=== PATIENT | female | born 1980 | race Caucasian/White ===

== ENCOUNTER 2016-06-12 08:44 | Day surgery (SDC) | payer OTHER ==
[~2016-06-12] VITALS: Ht 170.2 cm; Wt 96.6 kg
[2016-06-12] MEDS ORDERED: KEFLEX500 MG PO (09:16)
[2016-06-12] MEDS ORDERED: WELLBUTRIN XL150 MG PO (09:17)
[2016-06-12] MEDS ORDERED: PHENERGAN 25 MG25 M1 PO (09:17)
[2016-06-12] MEDS ORDERED: PROZAC10 MG PO (09:17)
[2016-06-12] MEDS ORDERED: SEROQUEL300 MG PO (09:18)
[2016-06-12 09:24] LABS: HEMOGLOBIN 12.4 gm/dl (12.3-15.3); RED BLOOD COUNT 4.11 M/UL (4.00-5.10); WHITE BLOOD COUNT 9.3 K/UL (4.5-11.0)
== END 2016-06-12 16:15 | disposition home or self-care (01) ==
LOC: OR 08:44 → OB 12:26 → OR 16:15
PROVIDERS: Obstetrics & Gynecology
PROC: 0UBL0ZZ Excision of Vestibular Gland, Open Approach (ICD-10-PCS; principal; 2016-06-12 08:45)
DX: O26.891 Other specified pregnancy related conditions, first trimester (principal); N75.8 Other diseases of Bartholin's gland; O99.331 Smoking (tobacco) complicating pregnancy, first trimester; F17.210 Nicotine dependence, cigarettes, uncomplicated; Z3A.12 12 weeks gestation of pregnancy; Z79.899 Other long term (current) drug therapy; Z88.8 Allergy status to other drugs, medicaments and biological substances
CPT/HCPCS: 36415; 81001; 84703; 85025; J1885; J2250; J2795; J7120

== ENCOUNTER → 2016-06-20 | Outpatient (CLI) | payer OTHER ==
[~2016-06-20] MED LIST: KEFLEX500 MG PO; PHENERGAN 25 MG25 M1 PO; PROZAC10 MG PO; SEROQUEL300 MG PO; WELLBUTRIN XL150 MG PO
== END ==
LOC: OPSV 09:14
DX: Z48.00 Encounter for change or removal of nonsurgical wound dressing (principal)
CPT/HCPCS: G0463

== ENCOUNTER 2016-07-31 16:35 | Outpatient (CLI) | payer OTHER ==
[2016-07-31 17:32] LABS: HEMOGLOBIN 12.4 gm/dl (12.3-15.3); RED BLOOD COUNT 4.04 M/UL (4.00-5.10)
[2016-07-31 17:53] LABS: BUN/CREATININE RATIO 10 (0-10)
== END 2016-07-31 20:46 | disposition home or self-care (01) ==
LOC: ER1 16:35 → GENOP 17:10 → ZEROF 17:10 → ER1 19:35 → GENOP 20:46 → ZEROF 20:46
PROVIDERS: Emergency Medicine
DX: O02.1 Missed abortion (principal); Z3A.16 16 weeks gestation of pregnancy
CPT/HCPCS: 36415; 76805; 80053; 80307; 81001; 84702; 85025; 86900; 86901; 99284; G0463

== ENCOUNTER 2016-08-01 11:10 | Observation (INO) | payer OTHER ==
[~2016-08-01] VITALS: Ht 170.2 cm; Wt 98.9 kg
== END 2016-08-02 06:29 | disposition home or self-care (01) ==
LOC: GENOP 11:10 → OB 11:46
PROVIDERS: ADMIT Obstetrics & Gynecology
DX: O02.1 Missed abortion (principal); F17.210 Nicotine dependence, cigarettes, uncomplicated; Z79.899 Other long term (current) drug therapy; Z90.49 Acquired absence of other specified parts of digestive tract; Z88.8 Allergy status to other drugs, medicaments and biological substances
CPT/HCPCS: G0378; J1200; J2300; J2550; J2590; J7050; J7120

== ENCOUNTER 2020-07-27 18:27 | Emergency (ER) | payer OTHER ==
[~2020-07-27 18:27] MED LIST changes: +COLACE 100MG C100 MG PO; +FLEXERIL 10 MG10 MG PO; +IBUPROFEN600 MG PO; +LAMICTAL25 MG PO; +LEXAPRO20 MG PO; +LORCET 5-325 M1 EACH PO; +NORCO 10-325 T1 EACH PO; -PROZAC10 MG PO; -SEROQUEL300 MG PO; +VISTARIL25 MG PO; -WELLBUTRIN XL150 MG PO
== END 2020-07-27 21:21 | disposition home or self-care (01) ==
LOC: ER1 18:27
DX: R51.9 Headache, unspecified (principal); F17.210 Nicotine dependence, cigarettes, uncomplicated; Z90.49 Acquired absence of other specified parts of digestive tract; Z79.899 Other long term (current) drug therapy
CPT/HCPCS: 99283

== ENCOUNTER → 2020-08-19 | Outpatient (CLI) | payer OTHER ==
[2020-08-19 12:10] LABS: RBC (AUTOMATED) 5200 10^6 (0); WBC (AUTOMATED 14 10^3 (0-5)
[2020-08-19 12:12] LABS: RBC (AUTOMATED) 400 10^6 (0); WBC (AUTOMATED 3 10^3 (0-5)
[2020-08-19 12:32] LABS: GLUCOSE,CSF 55 mg/dL (50-80); TOTAL PROTEIN,CSF 40 mg/dL (20-45)
[2020-08-21 14:11] LABS: CSF IGG INDEX 0.6 (0.0-0.7); CSF/SERUM ALB. INDEX 4 (0-8); IMMUNOGLOBULIN G, QN, SERUM 718 mg/dL (586-1602)
[2020-08-23 17:12] LABS: MYELIN BASIC PROTEIN, CSF 3.7 ng/mL (0.0-3.7)
== END ==
LOC: RAD 07:44
PROVIDERS: Nurse Practitioner Family
DX: G35 Multiple sclerosis (principal)
CPT/HCPCS: 36415; 82040; 82784; 82945; 83873; 83916; 84157; 85049; 85610; 85730; 87015; 87070; 87116; 87205; 87210; 89051

== ENCOUNTER 2020-09-21 17:35 | Emergency (ER) | payer OTHER | END 2020-09-21 19:00 | disposition left against medical advice (07) | LOC: ER1 17:35 | DX: Z53.21 Procedure and treatment not carried out due to patient leaving prior to being seen by health care provider (principal) ==

== ENCOUNTER → 2021-01-21 | Outpatient (CLI) | payer OTHER | LOC: EMI 01-20 14:00 | DX: Z00.00 Encounter for general adult medical examination without abnormal findings (principal); G35 Multiple sclerosis | CPT/HCPCS: 70553; 72156; A9577 ==